=== PATIENT | male | born 1975 | race Caucasian/White ===

== ENCOUNTER → 2022-01-07 | Outpatient (CLI) | payer OTHER | LOC: M PLARAD 07:39 | PROVIDERS: ATTEND Nurse Practitioner | DX: M25.561 Pain in right knee (principal); M22.41 Chondromalacia patellae, right knee ==

== ENCOUNTER 2023-03-28 11:24 | Day surgery (SDC) | payer OTHER ==
[~2023-03-28] VITALS: Ht 180.3 cm; Wt 88.0 kg
[~2023-03-28 11:24] MED LIST: CETI10CH PO; ESOM1CAP5 PO; LISI20TA33 PO; NS 1,000 ML IV ONE; VITMTA PO
[2023-03-28] MEDS ORDERED: LIDOCAINE 2% 100MG/5ML SDV (FOR ANES.) As Ordered ONE (12:35)
[2023-03-28] MEDS ORDERED: fentaNYL 100 MCG/2 ML INJECTION As Ordered ONE (12:36)
[2023-03-28] MEDS ORDERED: propofoL 200 MG/20 ML VIAL As Ordered ONE (12:37)
[2023-03-28] MEDS ORDERED: ONDANSETRON 4MG 2ML VIAL As Ordered ONE (13:57)
[2023-03-28 14:22] VITALS: BP 127/69; TEMP 96.2; O2SAT 95
== END 2023-03-28 14:47 | disposition home or self-care (01) ==
LOC: M OPP 11:24
PROVIDERS: ATTEND Internal Medicine Gastroenterology
DX: K22.89 Other specified disease of esophagus (principal); K22.2 Esophageal obstruction; K29.70 Gastritis, unspecified, without bleeding; R13.10 Dysphagia, unspecified; R07.9 Chest pain, unspecified; Z79.899 Other long term (current) drug therapy; Z91.018 Allergy to other foods; F17.290 Nicotine dependence, other tobacco product, uncomplicated
CPT/HCPCS: 43239; 43249; 88305; J2405; J3010